=== PATIENT | female | born 2000 | race African-American/Black ===

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

== ENCOUNTER 2022-11-13 20:20 | Emergency (ER) | payer OTHER ==
[~2022-11-13] VITALS: Ht 165.1 cm; Wt 91.1 kg
[~2022-11-13 20:20] MED LIST changes: +TORADOL PO; +ZOFRAN4 MG/TAB PO
[2022-11-13] MEDS ORDERED: AMOXICILLIN500 MG PO (22:12)
[2022-11-13 22:55] VITALS: BP 128/90
== END 2022-11-13 23:11 | disposition home or self-care (01) ==
LOC: ED 20:20
DX: J02.9 Acute pharyngitis, unspecified (principal); Z86.16 Personal history of COVID-19; Z20.822 Contact with and (suspected) exposure to COVID-19

== ENCOUNTER 2024-07-28 14:20 | Emergency (ER) | payer SELFPAY ==
[~2024-07-28] VITALS: Ht 165.1 cm; Wt 101.0 kg
[~2024-07-28 14:20] MED LIST changes: +AMOXICILLIN500 MG PO
[2024-07-28 14:32] VITALS: BP 112/83
[2024-07-28] MEDS ORDERED: KETOROLAC TROMETHAMINE 30 MG/ML SDV IM ONE (14:40)
[2024-07-28] MEDS ORDERED: NAPROXEN500 MG PO (14:50)
[2024-07-28 15:07] VITALS: BP 112/83
== END 2024-07-28 15:27 | disposition home or self-care (01) | DRG 103 ==
LOC: ED 14:20
DX: G44.209 Tension-type headache, unspecified, not intractable (principal)

== ENCOUNTER 2024-08-19 18:17 | Emergency (ER) | payer SELFPAY ==
[2024-08-19] VITALS (7 sets, daily range): BP systolic 119–131; BP diastolic 75–89
[~2024-08-19] VITALS: Ht 165.1 cm; Wt 104.3 kg
[~2024-08-19 18:17] MED LIST changes: +NAPROXEN500 MG PO
[2024-08-19] MEDS ORDERED: KETOROLAC TROMETHAMINE 30 MG/ML SDV IM ONE (18:40)
[2024-08-19] MEDS ORDERED: OSELTAMIVIR PHOSPHATE 75 MG/TAB CAP PO ONE (19:35)
[2024-08-19] MEDS ORDERED: TAM75CAP PO (19:50)
== END 2024-08-19 20:30 | disposition home or self-care (01) | DRG 153 ==
LOC: ED 18:17
DX: J11.1 Influenza due to unidentified influenza virus with other respiratory manifestations (principal); Z20.822 Contact with and (suspected) exposure to COVID-19

== ENCOUNTER 2024-10-28 20:30 | Emergency (ER) | payer SELFPAY ==
[~2024-10-28 20:30] MED LIST changes: +TAM75CAP PO
== END 2024-10-28 21:37 | disposition left against medical advice (07) | DRG 951 ==
LOC: ED 20:30 → LWOBS 21:37
DX: Z53.21 Procedure and treatment not carried out due to patient leaving prior to being seen by health care provider (principal)